=== PATIENT | female | born 1960 | race Caucasian/White ===

== ENCOUNTER 2017-12-16 14:27 | Outpatient (CLI) | payer BC, SELFPAY ==
--- NOTE | 2017-12-16 14:27 | DI.REPORT_ITS ---
SYMPTOMS/DIAGNOSIS: CHRONIC LT FOOT, LT ANKLE AND LT KNEE PAIN, ? TENDINITIS OR FRACTURE, M79.672, M25.572, M25.562 LEFT FOOT: Three views No priors. The bones are intact and normally mineralized. The joint spaces are well maintained. There is a small spur at the plantar surface of the calcaneus. There does appear to be soft tissue swelling of the foot. No radiopaque foreign bodies are seen in the soft tissues. IMPRESSION: 1. Generalized soft tissue swelling of the left foot. 2. Small plantar calcaneal spur. LEFT ANKLE: Three views. No bone or joint abnormality is identified. There is generalized soft tissue swelling about the ankle. No radiopaque foreign bodies are seen in the soft tissues. IMPRESSION: Soft tissue swelling about the left ankle. LEFT KNEE: Three views. No priors. Periarticular spurring is seen involving all three joint compartments. The joint spaces are otherwise well maintained. The bones are intact and normally mineralized. The soft tissues are unremarkable. IMPRESSION: Mild degenerative changes of the left knee.
== END 2017-12-16 14:28 ==
PROVIDERS: PCP Nurse Practitioner Family; Visit Provider Nurse Practitioner Family
DX: M25.562 Pain in left knee (principal); M25.572 Pain in left ankle and joints of left foot; M79.672 Pain in left foot; M77.32 Calcaneal spur, left foot; M79.89 Other specified soft tissue disorders; M17.12 Unilateral primary osteoarthritis, left knee; G89.29 Other chronic pain
CPT/HCPCS: 73562; 73610; 73630

== ENCOUNTER 2017-12-20 00:54 | Outpatient (CLI) | payer BC, SELFPAY ==
--- NOTE | 2017-12-20 16:27 | DI.REPORT_ITS ---
SYMPTOM/DIAGNOSIS: SCREENING BILATERAL SCREENING MAMMOGRAM: Mammograms were interpreted according to the usual protocol including computer analysis with CAD system, tomosynthesis and C view imaging. Comparison is made with exams from [facility] in [place], [place] dated 2013 through 2017. The breasts are composed of scattered fibroglandular densities. No suspicious masses or suspicious microcalcifications are seen. There has been no significant change. IMPRESSION: Category 1-B, negative mammogram. Routine screening is recommended. [facility] ASSESSMENT OF FINDINGS: Negative. Category 1. Patient will receive a letter notifying them of these results. BI-RADS category B. There are scattered areas of fibroglandular density.
== END 2017-12-20 00:55 ==
PROVIDERS: PCP Nurse Practitioner Family; Visit Provider Obstetrics & Gynecology
DX: Z12.31 Encounter for screening mammogram for malignant neoplasm of breast (principal)
CPT/HCPCS: 77063; 77067

== ENCOUNTER 2018-01-09 08:41 | Outpatient (RCR) | payer BC, SELFPAY ==
--- NOTE | 2018-01-09 15:21 | IE_ITS ---
Date: January 09, 2018 Referring: Candelaria Bettencourt APRN M.D. Diagnosis: L knee, foot and ankle pain, chronic P.T. Diagnosis: L knee arthritis, L posterior tibialis tendinitis, LLE edema, deconditioned SUBJECTIVE: History of Present Illness: Mayra presents to PT with complaints of chronic L knee pain of multiple year history with recent x-ray at [facility] confirming arthritic condition. She has a newer complaint, with onset of 3-4 months ago insidiously of discomfort along the arch of her L foot.She complains of her pain as feeling as if a needle is going into her arch. The pain in her arch is present most of the time, worsening throughout the day as she has been WB. Her knee is constant. Her L foot pain is much more remarkable than her L knee. Pain Rating: L foot at end of day 11/22. Knee pain /. Pain Location: L foot arch, L medial knee. Prior Level of Function: Was WNL. Current Level of Function: She is unable to ascend and descend stairs reciprocally. Dependent on rails for use of her stairs at home. Pain with prolonged WB. LEFS of a 56% disability. See LEFS for details. Previous Treatment: None professionally. She has attempted her own commercial orthotics, which have not been helpful. 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 She is and lives in a private home with her 4 stepsons. She continues to be able to carry out all of her work related activities, but with pain.She explains a job where she is doing alot of heavy labor, ambulation and prolonged stationary standing. She wears sneakers while working. Comorbidities: Recent weight gain over the past 3 years after suffering endometrial cancer, resulting in a total hysterectomy, as well as a second surgery and unrelated for removal of her thyroid.She has had her gallbladder removed, multiple eye surgeries for cataracts and detached retinas. She has corrected vision with glasses. She has blood disorder of Leiden factor, managed with an EOD baby aspirin. Quality of Life: __X__ Good Standardized Measures: LEFS score: __56%__ OBJECTIVE: Posture: Stands with bilateral knee hyperextension. Bilateral midfoot pronation bilaterally L greater than R and quite remarkable. Observation: (behavior, atrophy, skin color, etc.) Swelling bilateral LEs L greater than R, particularly through the L medial ankle compartment. Pitting edema upon palpation. No change in skin color. Gait: Antalgic. Decreased stance LLE but utilizing good heel to toe mechanics. She can toe and heel walk, but both resulting in pain along the L arch and medial ankle. Palpation: Remarkable tenderness throughout the entire length of the posterior tib musculature and distal tendon along the medial aspect of the L ankle. Nontender through the L knee. Edema: Pitting throughout the L medial ankle and L medial lower leg. ROM: L hip and knee WNL and nonirritable. L ankle is full and nonirritable, with the exception of end range eversion causing pain through the medial ankle. Joint Accessory Motion: WNL through the subtalar and talocrural joints, intertarsal molds and the MTP without discomfort. Patellofemoral and tibiofemoral WNL and nonirritable. Strength: 5/5 throughout the quad, hamstring, plantar flexion,dorsiflexion and eversion. Inversion is 4+/5 with pain resulting along the L medial ankle and lower leg. Hip 4/5 ER Hip abduction 5/5 with good core stability. Isolated L hip extension is 5/5 with MET, but with compensation to the paraspinals. When completing a bridge she is barely able to lift her pelvis off of the table with proper cuing for good segmental motion. She is able to do a Kegel appropriately and maintains good stability of this with LE dynamic movements in a closed chain hook lying position. Neuro: WNL LE screen. Balance: R 10 single leg stance good stability. L only 2-3 sec. with poor stability and discomfort resulting. Special Tests: Negative patellofemoral compression and negative L ankle anterior drawer squeeze test. Negative metatarsal squeeze test. Positive pain with resistance to inversion and plantar flexion, indicating posterior tib tendinitis. Treatment: IE: [id number] Patient Education: Instructed in self massage over posterior tib musculature, more for edema reduction, as well as desensitization. General ankle slow curls to encourage circulation and fascial movement and segmental bridge for proximal stabilization. Manual therapy: ([id number]).IASTM down regulation through L posterior tib, followed by Rock taping application. HEP instruction. Pt arrived 15 min late for appt today, limiting treatment time. Direct treatment time: 50 min Total treatment time: 50 min ASSESSMENT: Patient is a 57-year-old female, referred for PT services with the diagnosis of L knee, ankle and foot pain, chronic. Patient presents with clinical signs and symptoms consistent with a L posterior tibialis tendinitis, L knee arthritis, poor myokinematics stability of the LLE, pes planus and generally deconditioned , as demonstrated by the following impairment level findings: edema through LLE , particularly through the structure of the L posterior tib with pitting edema, soft tissue dysfunction through L posterior tibialis, weakness of L ankle inversion, glute weakness. Impairments are contributing to the following functional limitations:gait antalgia, poor tolerance to WB activities, inability to ascend and descend stairs reciprocally and LEFS of 56% disability. Patient is assessed as: __X__ Moderate 15033 complexity, based on the following : History: (list): X See comorbidities and social history. Examination: (list): X See above for functional limitations and impairments. Presentation: X Evolving Decision-Making: X Moderate complexity LEFS % Disability based on 56 __X__ Patient requires skilled PT intervention to remediate the above functional limitations to return to: __X__ Return to full. pain free functional mobility Prognosis: __X__ Good STG: __6__ weeks. 1. LEFS improved to 40% disability. 2. Nontantalgic gait. 3. Ascending and descending stairs reciprocally without pain exceeding 2/10. 4. The pain at the end of her work day does not exceed 4/10, a.m. hrs 0/10. LTG: __12__ weeks. __X__ Return to premorbid level of function. __X__ Return to full, pain-free, functional mobility. __X__ Independent with self-maintenance program. PLAN: Patient to be seen 2 x per week, for 12 weeks, adjusting frequency of visits per patient symptoms and response to treatment. Treatment to include: X Manual therapy - [id number]: for IASTM down regulation and MLD to the LLE, particularly through the posterior tib structure, Rock taping for neurofacilitation and edema reduction, deep tissue work through the posterior tib as tolerated and general posterior tib stretching. Joint accessory motions through the ankle for neurofacilitation and desensitization. X Therapeutic exercise - [id number] gross LLE strengthening and proprioceptive conditioning, intrinsic core strengthening with focus of glutes to improve myokinematics stability of the LLE. X Orthotic fabrication. X Neuromuscular re-education: Myokinematics stabilization, particularly through the LLE with focus of L glutes and ER of the LLE to reduce strain to the posterior tib musculature. Thank you for this referral. Please do not hesitate to contact me with any questions or concerns regarding this patient's plan of care. ANGEL/ivan
== END 2018-01-13 23:59 | disposition home or self-care (01) ==
LOC: PT 08:41
PROVIDERS: PCP Nurse Practitioner Family; Referring Provider Nurse Practitioner Family; Visit Provider Nurse Practitioner Family
DX: M17.2 Bilateral post-traumatic osteoarthritis of knee (principal); M76.822 Posterior tibial tendinitis, left leg; R60.0 Localized edema; R29.898 Other symptoms and signs involving the musculoskeletal system
CPT/HCPCS: 97140; 97162